=== PATIENT | female | born 1990 | race Two or more races ===

== ENCOUNTER 2018-03-22 19:58 | Observation (INO) | payer OTHER ==
--- NOTE | 2018-03-22 21:50 | ED ---
General Adult HPI - General Source: patient, RN notes reviewed Mode of arrival: ambulatory Limitations: no limitations <Latricia Costello - Last Filed: 03/23/18 00:03> <Enoch Astorga - Last Filed: 03/23/18 00:25> - General Chief complaint: Recheck/Abnormal Lab/Rx Stated complaint: general Time Seen by Provider: 03/22/18 20:46 - History of Present Illness Initial comments: This is a 27-year-old female who presents to the emergency department with altered mental status. Patient is a resident at [facility] where she is undergoing rehab for addictions to heroin and crack cocaine. Patient was sent to the emergency department for evaluation as she has been confused. It is reported that patient is having memory issues was a note times one today. at [facility] that patient come to the emergency department for further evaluation. They are concerned for head trauma. While speaking with patient, she does not recall how long she has been at [facility]. She knows the month and year but is unsure of the day of the week and who the president is. She does not recall any head trauma. She denies any past medical history and states that she takes no medications. She denies fevers, chest pain or shortness of breath, abdominal pain, nausea or vomiting, dizziness or headache. Denies vision changes. She states that she does know that she is having memory issues but denies ever experiencing this before in the past. (Latricia Costello) - Related Data Home Medications Medication Instructions Recorded Confirmed No Known Home Medications 03/22/18 03/22/18 Allergies Allergy/AdvReac Type Severity Reaction Status Date / Time No Known Allergies Allergy Verified 03/22/18 21:16 Review of Systems ROS Other: All systems not noted in ROS Statement are negative. <Latricia Costello - Last Filed: 03/23/18 00:03> ROS Other: All systems not noted in ROS Statement are negative. <Enoch Astorga - Last Filed: 03/23/18 00:25> ROS Statement: Those systems with pertinent positive or pertinent negative responses have been documented in the HPI. Past Medical History Additional Past Medical History / Comment(s): heroin abuse History of Any Multi-Drug Resistant Organisms: None Reported Past Surgical History: Orthopedic Surgery Past Psychological History: No Psychological Hx Reported Smoking Status: Current some day smoker Past Alcohol Use History: None Reported Past Drug Use History: None Reported <Latricia Costello - Last Filed: 03/23/18 00:03> General Exam Limitations: no limitations <Latricia Costello - Last Filed: 03/23/18 00:03> <Enoch Astorga - Last Filed: 03/23/18 00:25> - General Exam Comments Initial Comments: General: Awake and alert, well-developed; in no apparent distress. Patient appears confused, she has difficulty answering questions and stares off into space at times. HEENT: Head atraumatic, normocephalic. Pupils are equal, round and reactive to light. Extraocular movements intact. Oropharynx moist without erythema or exudate. Neck: Supple. Normal ROM. Cardiovascular: Regular rate and rhythm. No murmurs, rubs or gallops. Chest symmetrical. Respiratory: Lungs clear to auscultation bilaterally. No wheezes, rales or rhonchi. Normal respiratory effort with no use of accessory muscles. Abdomen: Soft, non-tender, non-distended. No rigidity, rebound or guarding. Normal bowel sounds in all 4 quadrants. Musculoskeletal: Normal ROM, no tenderness bilateral upper and lower extremities. Ambulating normally. Skin: [place], warm and dry without rashes or lesions. Neurological: Alert and oriented x3. Unsure of the day of the week and who president is. CN II-XII grossly intact. Speech is fluent and answers are appropriate. No focal neuro deficits. (TrangDuong bushLatricia Jignesh) Vital Signs 03/22/18 03/22/18 20:16 23:01 Temperature 98.5 F 98.8 F Pulse Rate 67 57 L Respiratory 20 15 Rate Blood Pressure 117/83 93/53 O2 Sat by Pulse 100 100 Oximetry EKG Findings - EKG Comments: EKG Findings:: 21:20:17. Sinus bradycardia with premature atrial complexes. Prolonged QT. Ventricular rate 57 bpm, VA interval 120, QRS duration 70, QT/ QTc 494/480 <Latricia Costello - Last Filed: 03/23/18 00:03> Medical Decision Making - Lab Data Result diagrams: 03/22/18 21:45 03/22/18 21:45 - Radiology Data Radiology results: report reviewed <Latricia Costello - Last Filed: 03/23/18 00:03> - Lab Data Result diagrams: 03/22/18 21:45 03/22/18 21:45 <Enoch Astorga - Last Filed: 03/23/18 00:25> - Medical Decision Making This is a 27-year-old female who presents to the emergency department with altered mental status. Patient is a resident at [facility]. She has been a resident since 03/17/2018 for heroin and crack cocaine rehab. Today patient was noted to have been confused and having memory issues. On examination, patient states she is unsure why she was here. She states she has noticed she has been having memory issues. She cannot recall how long she has been at [facility]. She does not know the day of the week for who the president is. She is alert and oriented to self and place. No focal neuro deficits on physical examination. A full workup for altered mental status was obtained. Computed tomography scan of the brain revealed no acute abnormalities. Chest x- ray was normal. CBC revealed a high white count at 18.2. Urine drug screen is positive for methamphetamines and benzos. Patient will not admit to using methamphetamine. She states that she has never used methamphetamine ever in her life. CMP and UA demonstrate no significant abnormalities. Case was discussed in detail with attending physician, Dr. Astorga who also evaluated the patient. Patient will be admitted to [facility] with neurology and psych consults. (Latricia Costello) I saw this patient in conjunction with the physician assistant producer. I performed independent history and physical exam. Agree with case management. (Enoch Astorga) - Lab Data Lab Results 03/22/18 03/22/18 03/22/18 Range/Units 21:45 21:45 21:45 WBC 18.2 H (3.8-10.6) k/uL RBC 5.71 H (3.80-5.40) m/uL Hgb 14.6 (11.4-16.0) gm/dL Hct 46.6 H (34.0-46.0) % MCV 81.6 (80.0-100.0) fL MCH 25.5 (25.0-35.0) pg MCHC 31.2 (31.0-37.0) g/dL RDW 14.7 (11.5-15.5) % Plt Count 504 H (150-450) k/uL Neutrophils % 70 % Lymphocytes % 24 % Monocytes % 3 % Eosinophils % 2 % Basophils % 0 % Neutrophils # 12.7 H (1.3-7.7) k/uL Lymphocytes # 4.3 (1.0-4.8) k/uL Monocytes # 0.6 (0-1.0) k/uL Eosinophils # 0.3 (0-0.7) k/uL Basophils # 0.1 (0-0.2) k/uL Hypochromasia Slight PT (9.0-12.0) sec INR (<1.2) APTT (22.0-30.0) sec Sodium 142 (137-145) mmol/L Potassium 4.3 (3.5-5.1) mmol/L Chloride 108 H (98-107) mmol/L Carbon Dioxide 24 (22-30) mmol/L Anion Gap 10 mmol/L BUN 18 H (7-17) mg/dL Creatinine 0.67 (0.52-1.04) mg/dL Est GFR (CKD-EPI)AfAm >90 (>60 ml/min/1.73 sqM) Est GFR (CKD-EPI)NonAf >90 (>60 ml/min/1.73 sqM) Glucose 90 (74-99) mg/dL Calcium 9.6 (8.4-10.2) mg/dL Total Bilirubin 0.6 (0.2-1.3) mg/dL AST 22 (14-36) U/L ALT 30 (9-52) U/L Alkaline Phosphatase 63 (38-126) U/L Troponin I (0.000-0.034) ng/mL Total Protein 9.0 H (6.3-8.2) g/dL Albumin 4.2 (3.5-5.0) g/dL Urine Color Yellow Urine Appearance Cloudy H (Clear) Urine pH 6.0 (5.0-8.0) Ur Specific [place] 1.027 (1.001-1.035) Urine Protein Trace H (Negative) Urine Glucose (UA) Negative (Negative) Urine Ketones Negative (Negative) Urine Blood Negative (Negative) Urine Nitrite Negative (Negative) Urine Bilirubin Negative (Negative) Urine Urobilinogen 2.0 (<2.0) mg/dL Ur Leukocyte Esterase Trace H (Negative) Urine RBC 4 (0-5) /hpf Urine WBC 7 H (0-5) /hpf Ur Squamous Epith Cells 31 H (0-4) /hpf Hyaline Casts 7 H (0-2) /lpf Urine Mucus Many H (None) /hpf Urine HCG, Qual (Not Detectd) Urine Opiates Screen Not Detected (NotDetected) Ur Oxycodone Screen Not Detected (NotDetected) Urine Methadone Screen Not Detected (NotDetected) Ur Propoxyphene Screen Not Detected (NotDetected) Ur Barbiturates Screen Not Detected (NotDetected) U Tricyclic Antidepress Not Detected (NotDetected) Ur Phencyclidine Scrn Not Detected (NotDetected) Ur Amphetamines Screen Not Detected (NotDetected) U Methamphetamines Scrn Detected H (NotDetected) U Benzodiazepines Scrn Detected H (NotDetected) Urine Cocaine Screen Not Detected (NotDetected) U Marijuana (THC) Screen Not Detected (NotDetected) 03/22/18 03/22/18 03/22/18 Range/Units 21:45 21:45 22:20 WBC (3.8-10.6) k/uL RBC (3.80-5.40) m/uL Hgb (11.4-16.0) gm/dL Hct (34.0-46.0) % MCV (80.0-100.0) fL MCH (25.0-35.0) pg MCHC (31.0-37.0) g/dL RDW (11.5-15.5) % Plt Count (150-450) k/uL Neutrophils % % Lymphocytes % % Monocytes % % Eosinophils % % Basophils % % Neutrophils # (1.3-7.7) k/uL Lymphocytes # (1.0-4.8) k/uL Monocytes # (0-1.0) k/uL Eosinophils # (0-0.7) k/uL Basophils # (0-0.2) k/uL Hypochromasia PT 11.3 (9.0-12.0) sec INR 1.2 H (<1.2) APTT 23.0 (22.0-30.0) sec Sodium (137-145) mmol/L Potassium (3.5-5.1) mmol/L Chloride (98-107) mmol/L Carbon Dioxide (22-30) mmol/L Anion Gap mmol/L BUN (7-17) mg/dL Creatinine (0.52-1.04) mg/dL Est GFR (CKD-EPI)AfAm (>60 ml/min/1.73 sqM) Est GFR (CKD-EPI)NonAf (>60 ml/min/1.73 sqM) Glucose (74-99) mg/dL Calcium (8.4-10.2) mg/dL Total Bilirubin (0.2-1.3) mg/dL AST (14-36) U/L ALT (9-52) U/L Alkaline Phosphatase (38-126) U/L Troponin I <0.012 (0.000-0.034) ng/mL Total Protein (6.3-8.2) g/dL Albumin (3.5-5.0) g/dL Urine Color Urine Appearance (Clear) Urine pH (5.0-8.0) Ur Specific [place] (1.001-1.035) Urine Protein (Negative) Urine Glucose (UA) (Negative) Urine Ketones (Negative) Urine Blood (Negative) Urine Nitrite (Negative) Urine Bilirubin (Negative) Urine Urobilinogen (<2.0) mg/dL Ur Leukocyte Esterase (Negative) Urine RBC (0-5) /hpf Urine WBC (0-5) /hpf Ur Squamous Epith Cells (0-4) /hpf Hyaline Casts (0-2) /lpf Urine Mucus (None) /hpf Urine HCG, Qual Not Detected (Not Detectd) Urine Opiates Screen (NotDetected) Ur Oxycodone Screen (NotDetected) Urine Methadone Screen (NotDetected) Ur Propoxyphene Screen (NotDetected) Ur Barbiturates Screen (NotDetected) U Tricyclic Antidepress (NotDetected) Ur Phencyclidine Scrn (NotDetected) Ur Amphetamines Screen (NotDetected) U Methamphetamines Scrn (NotDetected) U Benzodiazepines Scrn (NotDetected) Urine Cocaine Screen (NotDetected) U Marijuana (THC) Screen (NotDetected) - Radiology Data CT brain without contrast impression: Negative head computed tomography scan. Chest x-ray impression: Normal chest. (Latricia Costello) Disposition Is patient prescribed a controlled substance at d/c from ED?: No Time of Disposition: 23:01 <Latricia Costello - Last Filed: 03/23/18 00:03> <Enoch Astorga - Last Filed: 03/23/18 00:25> Clinical Impression: Acute delirium, Leukocytosis Disposition: ADMITTED IP TO THIS HOSP Condition: Fair Referrals: None,Stated [Primary Care Provider] - 1-2 days
[2018-03-22 21:55] LABS: Basophils # (A) 0.1 k/uL (0-0.2); Basophils % (A) 0 %; Eosinophils # (A) 0.3 k/uL (0-0.7); Eosinophils % (A) 2 %; HCT 46.6 % (34.0-46.0); HGB 14.6 gm/dL (11.4-16.0); Hypochromasia Slight; Lymphocytes # (A) 4.3 k/uL (1.0-4.8); Lymphocytes % (A) 24 %; MCH 25.5 pg (25.0-35.0); MCHC 31.2 g/dL (31.0-37.0); MCV 81.6 fL (80.0-100.0); Mean Platelet Volume 6.7; Monocytes # (A) 0.6 k/uL (0-1.0); Monocytes % (A) 3 %; Neutrophils # (A) 12.7 k/uL (1.3-7.7); Neutrophils % (A) 70 %; Platelet Count 504 k/uL (150-450); RBC 5.71 m/uL (3.80-5.40); RDW 14.7 % (11.5-15.5); WBC 18.2 k/uL (3.8-10.6)
[2018-03-22 21:58] LABS: Appearance,Urine Cloudy (Clear); Bilirubin,Urine Negative (Negative); Blood,Urine Negative (Negative); Color,Urine Yellow; Glucose,Urine (UA) Negative (Negative); Hyaline Casts,Urine 7 /lpf (0-2); Ketones,Urine Negative (Negative); Leukocyte Esterase,Urine Trace (Negative); Mucus,Urine Many /hpf; Nitrite,Urine Negative (Negative); Protein,Urine Trace (Negative); RBC,Urine 4 /hpf (0-5); Specific Gravity,Urine 1.027 (1.001-1.035); Squamous Epithelial Cell,Urine 31 /hpf (0-4); WBC,Urine 7 /hpf (0-5)
[2018-03-22 22:05] LABS: ALT 30 U/L (9-52); AST 22 U/L (14-36); Albumin 4.2 g/dL (3.5-5.0); Alkaline Phosphatase 63 U/L (38-126); Anion Gap 10 mmol/L; Blood Urea Nitrogen 18 mg/dL (7-17); Calcium 9.6 mg/dL (8.4-10.2); Carbon Dioxide 24 mmol/L (22-30); Chloride 108 mmol/L (98-107); Glucose 90 mg/dL (74-99); INR 1.2 (<1.2); Potassium 4.3 mmol/L (3.5-5.1); Prothrombin Time 11.3 sec (9.0-12.0); Sodium 142 mmol/L (137-145); Total Bilirubin 0.6 mg/dL (0.2-1.3)
--- NOTE | 2018-03-22 22:06 | XR ---
EXAMINATION TYPE: XR chest 2V DATE OF EXAM: 03/22/2018 COMPARISON: NONE HISTORY: Altered mental status TECHNIQUE: Frontal and lateral views of the chest are obtained. FINDINGS: 2 views Heart and mediastinum are normal. Lungs are clear. Diaphragm is normal. Bony thorax appears normal. IMPRESSION: Normal chest.
--- NOTE | 2018-03-22 22:09 | CT ---
EXAMINATION TYPE: CT brain wo con DATE OF EXAM: 03/22/2018 COMPARISON: None HISTORY: Altered mental status. CT DLP: 801.5 mGycm. Automated Exposure Control for Dose Reduction was Utilized. TECHNIQUE: CT scan of the head is performed without contrast. FINDINGS: Ventricles and sulci appear normal. There is no mass effect nor midline shift. There is no sign of intracranial hemorrhage. The calvarium is intact. IMPRESSION: Negative head CT scan.
[2018-03-22 22:12] LABS: Amphetamine Screen,Urine Not Detected (NotDetected); Barbiturate Screen,Urine Not Detected (NotDetected); Benzodiazepines Screen,Urine Detected (NotDetected); Cocaine Screen,Urine Not Detected (NotDetected); Methadone Screen, Urine Not Detected (NotDetected); Opiate Screen,Urine Not Detected (NotDetected); Oxycodone Screen, Urine Not Detected (NotDetected); Phencyclidine Screen,Urine Not Detected (NotDetected); Tricyclic Antidepressant,Urine Not Detected (NotDetected); Urn Cannabinoid Scrn Not Detected (NotDetected)
[2018-03-22] MEDS ORDERED: NALOXONE 0.4 MG/ML 1 ML VIAL IV PRN (23:50)
[2018-03-22] MEDS ORDERED: ACETAMINOPHEN TAB 325 MG TAB PO PRN (23:57)
[2018-03-22] MEDS ORDERED: KETOROLAC 30 MG/ML 1 ML VIAL IVP PRN (23:57)
[2018-03-22] MEDS ORDERED: ONDANSETRON 4 MG/2 ML VIAL IVP PRN (23:57)
[2018-03-22] MEDS ORDERED: IBUPROFEN 400 MG TAB PO PRN (23:57)
[2018-03-23] MEDS ORDERED: NICOTINE POLACRILEX 2 MG GUM BUCCAL PRN
[2018-03-23] MEDS ORDERED: NICOTINE 14MG/24HR PATCH TRANSDERM STA (00:01)
[2018-03-23] MEDS: SODIUM CHLORIDE 0.9% 1,000 ML IV SCH ×6 (01:19→21:59)
--- NOTE | 2018-03-23 01:21 | P.HPIM ---
History of Present Illness H&P Date: 03/23/18 Chief Complaint: Referred from [facility] The patient is a 27-year-old female who was referred to the ER from [facility] with concerns for altered mental status. Patient is a resident at [facility] where she is undergoing rehab for addictions to heroin and crack cocaine, benzodiazepines Xanax and Klonopin. Patient was sent to the emergency department for evaluation as she has been confused. It is reported that patient is having memory issues was a note times one today. Physician at [facility] that patient come to the emergency department for further evaluation. They are concerned for head trauma. She knows the month and year but is unsure of the day of the week and who the president is. She does not recall any head trauma. She denies any past medical history and states that she takes no medications. She denies fevers, chest pain or shortness of breath , abdominal pain, nausea or vomiting, dizziness or headache. Denies vision changes. She states that she does know that she is having memory issues but denies ever experiencing this before in the past. The patient reports that she checked herself into [facility] from [place] a few days ago. Review of records at [facility] indicates the patient was undergoing rehab and detox with buprenorphine. Patient denies any recent illicit drug use UDS on admission positive for methamphetamines and benzodiazepine, urinalysis appears contaminated, leukocytosis of 18.2. CT of the head was negative for any acute intracranial pathology, chest x-ray is normal. Patient is recommended for admission for neurology and psych consult as [facility] is refusing to take her back before she seen by these consultants Review of Systems Pertinent positives per HPI, all other review of systems otherwise negative Past Medical History Additional Past Medical History / Comment(s): heroin abuse History of Any Multi-Drug Resistant Organisms: None Reported Past Surgical History: Orthopedic Surgery Past Psychological History: No Psychological Hx Reported Smoking Status: Current some day smoker Past Alcohol Use History: None Reported Past Drug Use History: None Reported Medications and Allergies Home Medications Medication Instructions Recorded Confirmed Type No Known Home Medications 03/22/18 03/22/18 History Allergies Allergy/AdvReac Type Severity Reaction Status Date / Time No Known Allergies Allergy Verified 03/22/18 21:16 Physical Exam Vitals: Vital Signs Temp Pulse Resp BP Pulse Ox 03/22/18 23:01 98.8 F 57 L 15 93/53 100 03/22/18 20:16 98.5 F 67 20 117/83 100 Intake and Output 03/22/18 03/22/18 03/23/18 14:59 22:59 06:59 Other: Weight 60.691 kg Constitutional: No acute distress, conversant, pleasant Eyes: Anicteric sclerae, moist conjunctiva, no lid-lag, PERRLA ENMT: NC/AT,Oropharynx clear, no erythema, exudates Neck:Supple, FROM, no masses, or JVD, No carotid bruits; No thyromegaly Lungs: Clear to auscultation, Clear to percussion, Normal respiratory effort, no accessory muscle use Cardiovascular: Heart regular in rate and rhythm, No murmurs, gallops, or rubs no peripheral edema Abdominal: Soft Nontender, nom distended, no guarding, no rebound or rigidity, Normoactive bowel sounds No hepatomegaly, No splenomegaly, No palpable mass No abdominal wall hernia noted Skin: Normal temperature, tone, texture, turgor, No induration No subcutaneous nodules, No rash, lesions, No ulcers Extremities:No digital cyanosis No clubbing, Pedal pulses intact and symmetrical Radial pulses intact and symmetrical Normal gait and station, No calf tenderness Psychiatric: Alert and oriented to person, place and time, flat affect Intact judgement Neuro: Muscles Strength 5/5 in all 4 extremities, Sensation to light touch grossly present throughout, Cranial nerves II-XII grossly intact. No focal sensory deficits Results CBC & Chem 7: 03/22/18 21:45 03/22/18 21:45 Labs: Abnormal Lab Results - Last 24 Hours (Table) 03/22/18 03/22/18 03/22/18 Range/Units 21:45 21:45 21:45 WBC 18.2 H (3.8-10.6) k/uL RBC 5.71 H (3.80-5.40) m/uL Hct 46.6 H (34.0-46.0) % Plt Count 504 H (150-450) k/uL Neutrophils # 12.7 H (1.3-7.7) k/uL INR (<1.2) Chloride 108 H (98-107) mmol/L BUN 18 H (7-17) mg/dL Total Protein 9.0 H (6.3-8.2) g/dL Urine Appearance Cloudy H (Clear) Urine Protein Trace H (Negative) Ur Leukocyte Esterase Trace H (Negative) Urine WBC 7 H (0-5) /hpf Ur Squamous Epith Cells 31 H (0-4) /hpf Hyaline Casts 7 H (0-2) /lpf Urine Mucus Many H (None) /hpf U Methamphetamines Scrn Detected H (NotDetected) U Benzodiazepines Scrn Detected H (NotDetected) 03/22/18 Range/Units 21:45 WBC (3.8-10.6) k/uL RBC (3.80-5.40) m/uL Hct (34.0-46.0) % Plt Count (150-450) k/uL Neutrophils # (1.3-7.7) k/uL INR 1.2 H (<1.2) Chloride (98-107) mmol/L BUN (7-17) mg/dL Total Protein (6.3-8.2) g/dL Urine Appearance (Clear) Urine Protein (Negative) Ur Leukocyte Esterase (Negative) Urine WBC (0-5) /hpf Ur Squamous Epith Cells (0-4) /hpf Hyaline Casts (0-2) /lpf Urine Mucus (None) /hpf U Methamphetamines Scrn (NotDetected) U Benzodiazepines Scrn (NotDetected) Assessment and Plan (1) Encephalopathy acute Current Visit: Yes Status: Acute Code(s): G93.40 - ENCEPHALOPATHY, UNSPECIFIED SNOMED Code(s): 57688732 (2) Leukocytosis Current Visit: Yes Status: Acute Code(s): D72.829 - ELEVATED WHITE BLOOD CELL COUNT, UNSPECIFIED SNOMED Code(s): 109553639 (3) History of heroin abuse Current Visit: Yes Status: Acute Code(s): Z87.898 - PERSONAL HISTORY OF OTHER SPECIFIED CONDITIONS SNOMED Code(s): 550648611 (4) History of crack cocaine use Current Visit: Yes Status: Acute Code(s): XKY3559 - SNOMED Code(s): 769868732 (5) Methamphetamine abuse Current Visit: Yes Status: Acute Code(s): F15.10 - OTHER STIMULANT ABUSE, UNCOMPLICATED SNOMED Code(s): 531033129 (6) Benzodiazepine abuse Current Visit: Yes Status: Acute Code(s): F13.10 - SEDATIVE, HYPNOTIC OR ANXIOLYTIC ABUSE, UNCOMPLICATED SNOMED Code(s): 856230423 Plan: The patient is placed in observation anticipate a less than 2 midnight stay due to concerns for ongoing mental status likely acute encephalopathy possibly precipitated by withdrawals from either benzodiazepines, cocaine, or methamphetamine. CT of the head negative for any acute intracranial pathology, will consult neurology and psychiatry per the request of physician [place]. Patient is otherwise hemodynamically stable, initiate IV fluids, and continue with supportive therapy. Follow-up recommendations by consultants and continue to follow her clinical course.
[2018-03-23 01:56] VITALS: BMI 20.3
[2018-03-23] MEDS ORDERED: SODIUM CHLORIDE 0.9% 500 ML 500 ML IV ONE (08:11)
[2018-03-23 10:15] LABS: Basophils # (A) 0.1 k/uL (0-0.2); Basophils % (A) 0 %; Eosinophils # (A) 0.3 k/uL (0-0.7); Eosinophils % (A) 2 %; HCT 45.9 % (34.0-46.0); HGB 14.4 gm/dL (11.4-16.0); Hypochromasia Slight; Lymphocytes # (A) 4.4 k/uL (1.0-4.8); Lymphocytes % (A) 22 %; MCH 25.6 pg (25.0-35.0); MCHC 31.4 g/dL (31.0-37.0); MCV 81.4 fL (80.0-100.0); Mean Platelet Volume 7.8; Monocytes # (A) 0.8 k/uL (0-1.0); Monocytes % (A) 4 %; Neutrophils # (A) 13.7 k/uL (1.3-7.7); Neutrophils % (A) 70 %; Platelet Count 570 k/uL (150-450); RBC 5.64 m/uL (3.80-5.40); RDW 14.6 % (11.5-15.5); WBC 19.6 k/uL (3.8-10.6)
--- NOTE | 2018-03-23 12:07 | P.PN ---
Progress Note - Text Progress Note Date: 03/23/18 The patient was seen and examined at the bedside. She denied any active complaints and notes that she is feeling okay. She denied fever, chills, cough, chest pain, SOB, dysuria, abominal pain, nausea, vomiting, or diarrhea. General: Non-toxic, in no acute distress HEENT: NC/AT, anicteric sclerae, moist conjunctiva, no lid-lag, PERRLA, oropharynx clear, no erythema, exudates Cardiovascular: S1/S2 wnl, no murmurs, rubs, or gallops Lungs: Clear to auscultation, normal respiratory effort, no accessory muscle use Abdominal: Soft, nontender, non-distended, no guarding, rebound, or rigidity, normoactive bowel sounds Skin: Multiple areas of hyperpigmentation and bruising predominently of the UEs noted Extremities: No edema or contractures Psychiatric: Alert and oriented to person, place and time, flat affect Neuro: CN II-XII grossly intact, no focal motor deficits Assessment/Plan Acute encephalopathy (possibly secondary to withdrawal from multiple substances) - Improving, will monitor for now - Neuro and Psych consults pending Leukocytosis - No signs of infection at this time - BP stable (single reading of 85/54 in am which improved to 119/78 without intervention) - Will obtain Pro-calcitonin levels
[2018-03-23 12:29] LABS: ALT 21 U/L (9-52); AST 31 U/L (14-36); Albumin 4.2 g/dL (3.5-5.0); Alkaline Phosphatase 63 U/L (38-126); Anion Gap 12 mmol/L; Blood Urea Nitrogen 17 mg/dL (7-17); Calcium 9.6 mg/dL (8.4-10.2); Carbon Dioxide 20 mmol/L (22-30); Chloride 111 mmol/L (98-107); Glucose 83 mg/dL (74-99); Sodium 143 mmol/L (137-145); Total Protein 8.9 g/dL (6.3-8.2)
[2018-03-23 12:33] LABS: Potassium 5.1 mmol/L (3.5-5.1)
--- NOTE | 2018-03-23 19:39 | P.CNNES ---
History of Present Illness Consult date: 03/23/18 History of Present Illness: The patient is a 27-year-old handed white female who was sent to the emergency department with altered mental status from [facility] where she was staying since March 17. Apparently the patient has been having some memory issues and was referred to the hospital because of that. The patient is sitting in bed with the television on occasionally turning to the interviewer when spoken to. She is able to answer questions but doesn't voluntarily give any information as to the reason for admission. She had is aware that she is a resident of [facility] however she does not recall how long she's been there. She states she's been there a long time. She denies any neurologic complaints such as headache dizziness weakness numbness loss of balance loss of coordination or hallucinations. The patient does not show much emotion but didn 't have some tearfulness at some point during the interview. In the emergency room she had an elevated white cell count of 18.2 and drug screen showed methamphetamine in the urine and benzodiazepine in the urine. Urine analysis showed 7 wbc's and trace positive leukoesterase. There has been no fever. She was admitted to the hospital with diagnosis of acute encephalopathy, leukocytosis, history of heroin abuse, history of crack cocaine abuse, methamphetamine abuse, and benzodiazepine abuse. She is placed in observation unit. She had a CT of the head which was negative. Neurology was consulted today regarding altered mental status.. She denies any history of head trauma. Review of Systems Constitutional: Denies chills, Denies fever Eyes: denies blurred vision, denies pain Ears, nose, mouth and throat: Denies headache, Denies sore throat Cardiovascular: Denies chest pain, Denies shortness of breath Respiratory: Reports as per HPI Integumentary: Denies pruritus, Denies rash Neurological: Denies numbness, Denies weakness Psychiatric: Denies anxiety, Denies depression Past Medical History Additional Past Medical History / Comment(s): heroin abuse History of Any Multi-Drug Resistant Organisms: None Reported Past Surgical History: Orthopedic Surgery Additional Past Surgical History / Comment(s): Right hip surgery- patient says they repaired tissue because of needle use Past Psychological History: No Psychological Hx Reported Smoking Status: Current some day smoker Past Alcohol Use History: None Reported Past Drug Use History: None Reported Medications and Allergies Home Medications Medication Instructions Recorded Confirmed Type No Known Home Medications 03/22/18 03/22/18 History Allergies Allergy/AdvReac Type Severity Reaction Status Date / Time No Known Allergies Allergy Verified 03/22/18 21:16 Physical Examination - Vital Signs Vital Signs: Vital Signs Temp Pulse Pulse Resp BP BP BP 03/23/18 16:35 98.6 F 76 18 107/69 03/23/18 09:04 60 119/78 03/23/18 07:30 97.8 F 54 L 16 85/54 03/23/18 04:00 98.2 F 62 16 112/72 03/23/18 01:35 16 03/23/18 00:37 98.1 F 52 L 16 103/62 03/22/18 23:01 98.8 F 57 L 15 93/53 03/22/18 20:16 98.5 F 67 20 117/83 Pulse Ox 03/23/18 16:35 03/23/18 09:04 03/23/18 07:30 99 03/23/18 04:00 100 03/23/18 01:35 03/23/18 00:37 100 03/22/18 23:01 100 03/22/18 20:16 100 Intake and Output 03/23/18 03/23/18 03/23/18 06:59 14:59 22:59 Intake Total 342 Balance 342 Intake: Oral 342 Other: Voiding Method Toilet # Voids 1 Weight 60.69 kg - Constitutional General appearance: average body habitus, cooperative - EENT EENT: PERRL, hearing intact, vision intact - Respiratory Respiratory: lungs clear - Cardiovascular Cardiovascular: regular rate, normal S1, normal S2 - Neurologic Neurologic examination: Mental status: She was awake she was alert she was oriented to person place and year. She did was unaware of the date. When asked what drugs she has abused in the past she said heroin and crack cocaine. She denies any symptoms at present. She denied any headache back pain and neck pain or focal weakness numbness visual changes or dizziness. She denies having had any hallucinations. When asked about confusion she states she has not had any confusion. She was able to recall 3 out of 3 objects in 1 minute 2 minutes and 3 minutes. She was able to do simple addition but had difficulty with subtraction. There was no a aphasia or dysarthria. Cranial nerve examination: PERRL, EOMI, VFF, V1/V2/V3 grossly intact, face symmetric Speech examination: intact Detailed motor examination: grossly full strength in all extremities Results - Laboratory Findings CBC and BMP: 03/23/18 09:18 03/23/18 11:40 Abnormal Lab Findings: Abnormal Labs 03/22/18 03/22/18 03/22/18 21:45 21:45 21:45 WBC 18.2 H RBC 5.71 H Hct 46.6 H Plt Count 504 H Neutrophils # 12.7 H INR Chloride 108 H Carbon Dioxide BUN 18 H Total Protein 9.0 H Urine Appearance Cloudy H Urine Protein Trace H Ur Leukocyte Esterase Trace H Urine WBC 7 H Ur Squamous Epith Cells 31 H Hyaline Casts 7 H Urine Mucus Many H U Methamphetamines Scrn Detected H U Benzodiazepines Scrn Detected H 03/22/18 03/23/18 03/23/18 21:45 09:18 11:40 WBC 19.6 H RBC 5.64 H Hct Plt Count 570 H Neutrophils # 13.7 H INR 1.2 H Chloride 111 H Carbon Dioxide 20 L BUN Total Protein 8.9 H Urine Appearance Urine Protein Ur Leukocyte Esterase Urine WBC Ur Squamous Epith Cells Hyaline Casts Urine Mucus U Methamphetamines Scrn U Benzodiazepines Scrn Assessment and Plan (1) Acute psychosis Current Visit: Yes Status: Acute SNOMED Code(s): 93109482 (2) Leukocytosis Current Visit: Yes Status: Acute SNOMED Code(s): 523179556 (3) Methamphetamine abuse Current Visit: Yes Status: Acute SNOMED Code(s): 612597638 (4) Benzodiazepine abuse Current Visit: Yes Status: Acute SNOMED Code(s): 226293363 (5) History of crack cocaine use Current Visit: Yes Status: Acute SNOMED Code(s): 023039637 Plan: The patient is a 27-year-old woman who has history of drug abuse was admitted to the hospital with altered mental status. Her neurologic examination is nonfocal. She does have cognitive disturbance which may be secondary to methamphetamine withdrawal. She does exhibit signs of depression. Psychiatry has been consulted. She has some leukocytosis of unclear etiology. Recommend infectious disease consultation regarding unspecified leukocytosis. She has had a CT of the brain which was negative. Recommend EEG. She has an abnormal EKG with prolonged QT interval and bradycardia. Recommend echocardiogram. Also check TSH T4
[2018-03-24] MEDS: SODIUM CHLORIDE 0.9% 1,000 ML IV SCH ×4 (03:23→17:51)
[2018-03-24 08:05] LABS: HCT 47.8 % (34.0-46.0); HGB 14.7 gm/dL (11.4-16.0); Hypochromasia Moderate; MCH 25.7 pg (25.0-35.0); MCHC 30.7 g/dL (31.0-37.0); MCV 83.9 fL (80.0-100.0); Platelet Count 531 k/uL (150-450); RBC 5.69 m/uL (3.80-5.40); RDW 14.6 % (11.5-15.5); WBC 17.8 k/uL (3.8-10.6)
[2018-03-24 08:25] LABS: ALT 20 U/L (9-52); AST 23 U/L (14-36); Albumin 4.2 g/dL (3.5-5.0); Alkaline Phosphatase 60 U/L (38-126); Anion Gap 11 mmol/L; Blood Urea Nitrogen 15 mg/dL (7-17); Calcium 9.6 mg/dL (8.4-10.2); Carbon Dioxide 21 mmol/L (22-30); Chloride 111 mmol/L (98-107); Glucose 98 mg/dL (74-99); Potassium 4.7 mmol/L (3.5-5.1); Sodium 143 mmol/L (137-145); Total Bilirubin 0.7 mg/dL (0.2-1.3); Total Protein 8.9 g/dL (6.3-8.2)
--- NOTE | 2018-03-24 12:02 | MR ---
EXAMINATION TYPE: MR brain wo con DATE OF EXAM: 03/24/2018 COMPARISON: CT brain dated 03/22/2018 HISTORY: altered mental status with IV drug abuse TECHNIQUE: Multiplanar, multisequence images of the brain and brainstem is performed without intravenous contras t. Patient motion artifact limits the examination and the examination is incomplete as the patient te rminated the examination before completion. FINDINGS: Diffusion weighted images demonstrate no evidence of a recent infarct or other diffusion ab normality. There is no extra-axial fluid collection or significant white matter signal abnormality. The ventricular system and cisternal spaces are normal in size and appearance. The brain volume is age appropriate. Midline structures demonstrate normal morphology. The craniocervical junction appears within normal limits. Post contrast images demonstrate no abnormal enhancement. The dural venous sinuses appear pa tent. The visualized sinuses are clear and the globes are intact. IMPRESSION: No evidence of acute infarct, midline shift or mass effect. Exam is suboptimal given casandra ent motion artifact and limited sequences as the patient voluntarily terminated the examination befor e completion.
--- NOTE | 2018-03-24 12:23 | P.PN ---
Subjective Progress Note Date: 03/24/18 Patient was seen and examined at the bedside. The patient was seated upright in the bed w/ flat affect. She denied any active complaints including headache, dizziness, confusion, fever, chills, nausea, vomiting, diarrhea, or abdominal pain. Objective - Vital Signs Vital signs: Vital Signs Temp 97.8 F 03/24/18 10:20 Pulse 70 03/24/18 10:20 Resp 20 03/24/18 10:20 BP 103/71 03/24/18 10:20 Pulse Ox 99 03/24/18 10:20 Intake & Output 03/23/18 03/24/18 03/24/18 18:59 06:59 18:59 Intake Total 342 Balance 342 Weight 60.69 kg Intake: Oral 342 Other: Voiding Method Toilet Toilet # Voids 1 - Exam General: Non-toxic, in no acute distress HEENT: NC/AT, anicteric sclerae, moist conjunctiva, no lid-lag, PERRLA, oropharynx clear, no erythema, exudates Cardiovascular: S1/S2 wnl, no murmurs, rubs, or gallops Lungs: Clear to auscultation, normal respiratory effort, no accessory muscle use Abdominal: Soft, nontender, non-distended, no guarding, rebound, or rigidity, normoactive bowel sounds Skin: Warm, dry Extremities: Areas of hyperpigmentation and healed ulcers diffusely, predominantly in the UEs Psychiatric: Alert and oriented to person, and place. Could recall the year though not the month, flat affect, Intact judgment Neuro: CN II-XII grossly intact, no focal motor deficits - Labs CBC & Chem 7: 03/24/18 07:48 03/24/18 07:48 Labs: Abnormal Lab Results - Last 24 Hours (Table) 03/23/18 03/24/18 03/24/18 Range/Units 11:40 07:48 07:48 WBC 17.8 H (3.8-10.6) k/uL RBC 5.69 H (3.80-5.40) m/uL Hct 47.8 H (34.0-46.0) % MCHC 30.7 L (31.0-37.0) g/dL Plt Count 531 H (150-450) k/uL Chloride 111 H 111 H (98-107) mmol/L Carbon Dioxide 20 L 21 L (22-30) mmol/L Total Protein 8.9 H 8.9 H (6.3-8.2) g/dL Assessment and Plan Plan: Acute encephalopathy, improving, possibly secondary to substance withdrawal (ie Methamphetamine) - Neurology recs appreciated - Psychiatry recs pending - MRI brain unremarkable - TSH and Free T4 unremarkable - EEG pending. Prolonged QT and sinus bradycardia - Will f/u Echocardiogram Leukocytosis - Improved, no other signs of infection - Infectious disease consulted - Procalcitonin levels negative DVT//GI prophy. - IPCDs - No indication for GI prophy.
--- NOTE | 2018-03-24 16:30 | ECHOF ---
Referral Reason:IV drug abuse rule out endocarditis MEASUREMENTS -------- HEIGHT: 172.7 cm WEIGHT: 62.6 kg BP: 100/63 RVIDd: 2.5 cm (< 3.3) IVSd: 1.0 cm (0.6 - 1.1) LVIDd: 4.1 cm (3.9 - 5.3) LVPWd: 1.0 cm (0.6 - 1.1) IVSs: 1.3 cm LVIDs: 2.4 cm LVPWs: 1.5 cm LA Diam: 2.4 cm (2.7 - 3.8) Ao Diam: 2.7 cm (2.0 - 3.7) AV Cusp: 2.1 cm (1.5 - 2.6) MV EXCURSION: 17.440 mm (> 18.000) MV EF SLOPE: 123 mm/s (70 - 150) EPSS: 0.4 cm MV E Antonio: 0.88 m/s MV DecT: 330 ms MV A Antonio: 0.52 m/s MV E/A Ratio: 1.70 RAP: 5.00 mmHg RVSP: 24.33 mmHg FINDINGS -------- Sinus rhythm. This was a technically good study. The left ventricular size is normal. Left ventricular wall thickness is normal. Overall left vent ricular systolic function is normal with, an EF between 55 - 60 %. The right ventricle is normal in size. Normal LA size by volume 22+/-6 ml/m2. The right atrium is normal in size. The aortic valve is trileaflet, and appears structurally normal. No aortic stenosis or regurgitation. The mitral valve is normal. There is trace mitral regurgitation. The tricuspid valve appears structurally normal. Mild tricuspid regurgitation present. Right vent ricular systolic pressure is normal at < 35 mmHg. The pulmonic valve was not well visualized. The aortic root size is normal. Normal inferior vena cava with normal inspiratory collapse consistent with estimated right atrial pre ssure of 5 mmHg. There is no pericardial effusion. CONCLUSIONS -------- 1. Sinus rhythm. 2. This was a technically good study. 3. The left ventricular size is normal. 4. Left ventricular wall thickness is normal. 5. Overall left ventricular systolic function is normal with, an EF between 55 - 60 %. 6. Normal LA size by volume 22+/-6 ml/m2. 7. The aortic valve is trileaflet, and appears structurally normal. No aortic stenosis or regurgitati on. 8. There is trace mitral regurgitation. 9. Mild tricuspid regurgitation present. 10. Right ventricular systolic pressure is normal at < 35 mmHg. 11. The pulmonic valve was not well visualized. 12. The aortic root size is normal. 13. Normal inferior vena cava with normal inspiratory collapse consistent with estimated right atrial pressure of 5 mmHg. 14. There is no pericardial effusion. [employer]AT MECH[employer]IC: Debbie Milligan RDCS
--- NOTE | 2018-03-24 20:25 | P.PN ---
Subjective Progress Note Date: 03/24/18 The patient is a 27-year-old woman admitted to the hospital from [facility] with altered mental status. The patient states she is feeling fine. She has no new complaints. She has no complaints. She denies any headache dizziness weakness or confusion. She had an MRI of the brain which showed no evidence of acute infarct or mass effect. Exam was suboptimal due to motion artifact and the patient voluntarily terminated the exam. She does not show much emotion. Does appear anxious and slightly depressed. He appears reluctant to answer questions. She had an echocardiogram which was unremarkable. When asked about methamphetamine use she states that she last used it about one year ago. She states her current drugs she uses are crack cocaine and heroin. She is still unclear about how long she has been at [facility]. He denies hallucinations and she denies any change in her mental status. Objective - Vital Signs Vital signs: Vital Signs Temp 97.8 F 03/24/18 10:20 Pulse 70 03/24/18 15:44 Resp 20 03/24/18 15:44 BP 103/71 03/24/18 10:20 Pulse Ox 99 03/24/18 10:20 Intake & Output 03/24/18 03/24/18 03/25/18 06:59 18:59 06:59 Weight 60.69 kg Other: Voiding Method Toilet Toilet # Voids 1 - Constitutional General appearance: Present: average body habitus, cooperative - EENT Eyes: Present: EOMI ENT: Present: hearing grossly normal - Neurologic Neurologic Comment(s): Neurologic examination: Mental status: She was awake. She was alert. She appeared anxious and not forthcoming with answers. When asked what city she was in she initially said [place]. When asked a few minutes later she said [place]. The year was 2017 the month was March when asked what facility she was in she said [facility] when asked a few minutes later she said [facility]. She had difficulty with calculations addition and subtraction and she was able to spell world forward but had difficulty spelling it backwards . When asked about her children she states she has a 10-year-old son and another child which she lost in a miscarriage. She is unsure of when the miscarriage occurred. Speech was fluent and she followed commands appropriately. When asked if she recognize the examiner she stated yes and that she had met at the examiner's house and [place]. She did not appear surprised and showed a very flat affect Cranial nerves: There was no facial asymmetry. Extraocular movements are intact. Visual bell were full. Motor examination: 5 out of 5 throughout except Coordination was intact next Deep tendon reflexes were symmetric Gait was intact - Labs CBC & Chem 7: 03/24/18 07:48 03/24/18 07:48 Labs: Abnormal Lab Results - Last 24 Hours (Table) 03/24/18 03/24/18 Range/Units 07:48 07:48 WBC 17.8 H (3.8-10.6) k/uL RBC 5.69 H (3.80-5.40) m/uL Hct 47.8 H (34.0-46.0) % MCHC 30.7 L (31.0-37.0) g/dL Plt Count 531 H (150-450) k/uL Chloride 111 H (98-107) mmol/L Carbon Dioxide 21 L (22-30) mmol/L Total Protein 8.9 H (6.3-8.2) g/dL Assessment and Plan (1) Acute psychosis Current Visit: Yes Status: Acute SNOMED Code(s): 87708508 (2) Leukocytosis Current Visit: Yes Status: Acute SNOMED Code(s): 959612990 (3) Methamphetamine abuse Current Visit: Yes Status: Acute SNOMED Code(s): 709104687 (4) Benzodiazepine abuse Current Visit: Yes Status: Acute SNOMED Code(s): 346377394 (5) History of crack cocaine use Current Visit: Yes Status: Acute SNOMED Code(s): 267077673 Plan: The patient is a 27-year-old woman who has history of heroin and cocaine drug abuse was admitted to the hospital with altered mental status. Her neurologic examination is nonfocal except for cognitive impairment. She also appears depressed and anxious. She had an MRI of the brain today which was unremarkable. This was a suboptimal study since patient terminated the examination. Her white cell count and platelet count have come down slightly. Her EEG was normal. Psychiatry evaluation is pending. The patient's cognitive issues are likely secondary to methamphetamine withdrawal.
--- NOTE | 2018-03-24 20:57 | EEG ---
ELECTROENCEPHALOGRAM REPORT DATE OF EE03/24/2018. REFERRING PHYSICIAN: Dr. Felipe. CONSULTING AND INTERPRETING PHYSICIAN: Dr. Germain FELICIANO ELECTROENCEPHALOGRAPHIC EXAMINATION REPORT: INDICATION FOR EXAMINATION: This patient is a 27-year-old female being evaluated for altered mental status and memory loss. Patient admitted with positive drug screen. AGE: [age]. EEG FINDINGS: A routine 21 channel awake digital EEG recording was accomplished utilizing the 10-20 international system with bipolar and referential montages. The background activity in the most alert resting state consists of a low to medium amplitude, poorly developed and poorly sustained 8 Hz activity over the posterior head regions. This posterior rhythm attenuates to eye opening. There is an excessive amount of low amplitude 18-20 Hz beta activity seen in a generalized fashion throughout the tracing. Muscle and movement artifact was observed on a few occasions during the tracing. Hyperventilation was not performed. Photic stimulation at flash frequencies of 2-30 Hz produced a minimal occipital driving response. No epileptiform discharges were seen. IMPRESSION: This EEG is within normal limits for the patient's age. The EEG failed to reveal any focal, lateralized, or epileptiform abnormalities. Clinical correlation is recommended. MMODL / IJN: [id number] /
--- NOTE | 2018-03-24 23:10 | P.CONS ---
History of Present Illness - Reason for Consult Consult date: 03/24/18 - Chief Complaint Altered mental status - History of Present Illness 27-year-old female presents to the emergency center from [facility] with altered mental status. The patient apparently has been a resident there for relatively short period of time when she started to have worsening mental status. She counseling was sent to the emergency center with evidence of altered mental status she was admitted to hospital for neurological evaluation. Computed tomography scan was performed without acute abnormalities. She's been seen by neurology with evidence of underlying encephalopathy. Her drug screen admission was positive for methamphetamine as well as benzodiazepines. The patient denies using any drugs at all. She has no idea how she has drugs in her system. She does relate to a known history of injection drug use but it's been many months since she utilized heroin and cocaine. The patient relates that she is a 10-year-old son who is under the care of his father in the [place] area, which is important because of her difficulties with drug use and staying at the [facility]. The patient relates a board and is able to state that she is in [facility] in the [facility]. However 1 first asked where she is at she says [place]. She relates that she saw Dr. Groves and Dr. Pal bañuelos last year. She had difficulty with any mental calculations but denied hallucinations. She distinctly denies any discomforts, she has no headache, no eye pain, no shortness of breath cough or sputum production no abdominal pain no nausea emesis change in bowel habits. She doesn't believe she has dysuria or flank pain. Review of Systems HEENT:Denies headache or acute visual change. Denies sinus or mouth discomforts. Denies neck stiffness or pain. Denies significant oral cavity pain. Denies difficulty on swallowing. Lungs: Denies significant shortness of breath, cough, sputum production, or hemoptysis. Cardiovascular: Denies significant shortness of breath, chest pain, chest wall pain, orthopnea, dyspnea on exertion, syncope Gastrointestinal:Denies nausea, vomiting, diarrhea, constipation, hematemesis, melena, hematochezia. No no significant change of bowel habit noticed. Musculoskeletal: denies significant myalgias or arthralgias. No new joint swelling. Denies new back pain. Skin: Denies new rash or lesions. No new ulcers or wounds are related.. Neuro: Denies headache or visual change. Denies any new onset weakness or difficulty with ambulation. Denies falls or seizures. Psychiatric: Positive for polysubstance abuse, no current hallucinations Endocrine: Denies significant fatigue, denies significant weight loss or weight gain. Past Medical History Additional Past Medical History / Comment(s): heroin abuse History of Any Multi-Drug Resistant Organisms: None Reported Past Surgical History: Orthopedic Surgery Additional Past Surgical History / Comment(s): Right hip surgery- patient says they repaired tissue because of needle use Past Psychological History: No Psychological Hx Reported Additional Psychological History / Comment(s): She is single. The father of her 10-year-old apparently is in custody of the child. Has a history of tobacco use, denies much alcohol use, has a history of polysubstance abuse and has done heroin and cocaine by injection last time apparently a few months ago. It is noted methamphetamine and benzodiazepine in her system at admission. No experience. No international travel. No animal exposures Smoking Status: Current some day smoker Past Alcohol Use History: None Reported Past Drug Use History: None Reported Medications and Allergies Home Medications and Allergies Comment(s): Current Medications Acetaminophen (Tylenol Tab) 650 mg PO Q6HR PRN PRN Reason: Mild Pain or Fever > 100.5 Sodium Chloride (Saline 0.9%) 1,000 mls @ 100 mls/hr IV .Q10H [facility] Last Admin: 03/24/18 17:51 Dose: Not Given Sodium Chloride (Saline 0.9%) 1,000 mls @ 100 mls/hr IV .Q10H [facility] Last Admin: 03/24/18 17:24 Dose: Not Given Ibuprofen (Motrin) 400 mg PO Q6HR PRN PRN Reason: Mild Pain or Fever > 100.5 Ketorolac Tromethamine (Toradol) 30 mg IVP Q6HR PRN PRN Reason: Moderate Pain Stop: 03/27/18 23:58 Naloxone HCl (Narcan) 0.2 mg IV Q2M PRN PRN Reason: Opioid Reversal Nicotine Polacrilex (Nicorette Gum) 2 mg BUCCAL Q6HR PRN PRN Reason: Nicotine Cravings Ondansetron HCl (Zofran) 4 mg IVP Q8HR PRN PRN Reason: Nausea And Vomiting Home Medications Medication Instructions Recorded Confirmed Type No Known Home Medications 03/22/18 03/22/18 History Allergies Allergy/AdvReac Type Severity Reaction Status Date / Time No Known Allergies Allergy Verified 03/22/18 21:16 Physical Exam Vitals: Vital Signs Temp Pulse Resp BP Pulse Ox 03/24/18 20:20 98.4 F 77 16 115/74 99 03/24/18 15:44 70 20 03/24/18 12:00 70 20 03/24/18 10:20 97.8 F 70 20 103/71 99 03/24/18 07:10 63 16 03/24/18 04:00 98.2 F 63 16 100/63 97 03/24/18 01:51 67 16 03/24/18 00:00 67 16 Intake and Output 03/24/18 03/24/18 03/24/18 06:59 14:59 22:59 Intake Total 420 Balance 420 Intake: Oral 420 Other: Voiding Method Toilet Toilet Toilet # Voids 1 Weight 60.69 kg 27-year-old female in no distress HEENT: Anicteric conjunctiva are pink and moist nasal mucosa grossly intact without significant lesions, there is no thrush. Dentition is poor Neck: The neck is supple without significant lymphadenopathy or thyromegaly. Lungs: Good bilateral air entry without significant crackles or wheezing. There is no significant bronchial sounds. There is no egophony or dullness. Heart: Regular rate and rhythm with an audible S1-S2, no S3 no S4. There is no significant murmur click or rub, PMI was nondisplaced. Abdomen: Positive bowel sounds soft and nontender without palpable masses or organomegaly. There was no guarding or rebound. Extremities: The upper extremities have excellent pulses they are symmetric, no significant petechiae or telangiectasia. No splinter hemorrhages were noted. The lower extremities are free from significant edema. The peripheral pulses were 2+ and symmetric. Neuro: Awake alert oriented to person as noted for place she was able to read the board and states that she was at [facility], and then [facility] however first related that she was in [place]. She had difficulty with calculations, could not spelled world backwards, her gait was somewhat unsteady , denied hallucinations but was confabulating some of her answers such as knowing Dr. Groves from her at Dr. Aguillon [place]. No focal deficits noted. Results CBC & Chem 7: 03/24/18 07:48 03/24/18 07:48 Labs: Abnormal Lab Results - Last 24 Hours (Table) 03/24/18 03/24/18 Range/Units 07:48 07:48 WBC 17.8 H (3.8-10.6) k/uL RBC 5.69 H (3.80-5.40) m/uL Hct 47.8 H (34.0-46.0) % MCHC 30.7 L (31.0-37.0) g/dL Plt Count 531 H (150-450) k/uL Chloride 111 H (98-107) mmol/L Carbon Dioxide 21 L (22-30) mmol/L Total Protein 8.9 H (6.3-8.2) g/dL Laboratory Results WBC 17.8 k/uL (3.8-10.6) H 03/24/18 07:48 RBC 5.69 m/uL (3.80-5.40) H 03/24/18 07:48 Hgb 14.7 gm/dL (11.4-16.0) 03/24/18 07:48 Hct 47.8 % (34.0-46.0) H 03/24/18 07:48 MCV 83.9 fL (80.0-100.0) 03/24/18 07:48 MCH 25.7 pg (25.0-35.0) 03/24/18 07:48 MCHC 30.7 g/dL (31.0-37.0) L 03/24/18 07:48 RDW 14.6 % (11.5-15.5) 03/24/18 07:48 Plt Count 531 k/uL (150-450) H 03/24/18 07:48 Neutrophils % 70 % 03/23/18 09:18 Lymphocytes % 22 % 03/23/18 09:18 Monocytes % 4 % 03/23/18 09:18 Eosinophils % 2 % 03/23/18 09:18 Basophils % 0 % 03/23/18 09:18 Neutrophils # 13.7 k/uL (1.3-7.7) H 03/23/18 09:18 Lymphocytes # 4.4 k/uL (1.0-4.8) 03/23/18 09:18 Monocytes # 0.8 k/uL (0-1.0) 03/23/18 09:18 Eosinophils # 0.3 k/uL (0-0.7) 03/23/18 09:18 Basophils # 0.1 k/uL (0-0.2) 03/23/18 09:18 Hypochromasia Moderate 03/24/18 07:48 PT 11.3 sec (9.0-12.0) 03/22/18 21:45 INR 1.2 (<1.2) H 03/22/18 21:45 APTT 23.0 sec (22.0-30.0) 03/22/18 21:45 Sodium 143 mmol/L (137-145) 03/24/18 07:48 Potassium 4.7 mmol/L (3.5-5.1) 03/24/18 07:48 Chloride 111 mmol/L (98-107) H 03/24/18 07:48 Carbon Dioxide 21 mmol/L (22-30) L 03/24/18 07:48 Anion Gap 11 mmol/L 03/24/18 07:48 BUN 15 mg/dL (7-17) 03/24/18 07:48 Creatinine 0.62 mg/dL (0.52-1.04) 03/24/18 07:48 Est GFR (CKD-EPI)AfAm >90 (>60 ml/min/1.73 sqM) 03/24/18 07:48 Est GFR (CKD-EPI)NonAf >90 (>60 ml/min/1.73 sqM) 03/24/18 07:48 Glucose 98 mg/dL (74-99) 03/24/18 07:48 Calcium 9.6 mg/dL (8.4-10.2) 03/24/18 07:48 Total Bilirubin 0.7 mg/dL (0.2-1.3) 03/24/18 07:48 AST 23 U/L (14-36) 03/24/18 07:48 ALT 20 U/L (9-52) 03/24/18 07:48 Alkaline Phosphatase 60 U/L (38-126) 03/24/18 07:48 Troponin I <0.012 ng/mL (0.000-0.034) 03/22/18 21:45 Total Protein 8.9 g/dL (6.3-8.2) H 03/24/18 07:48 Albumin 4.2 g/dL (3.5-5.0) 03/24/18 07:48 Procalcitonin 0.02 ng/mL (0.02-0.09) 03/23/18 18:00 TSH 0.651 mIU/L (0.465-4.680) 03/23/18 18:00 Free T4 1.50 ng/dL (0.78-2.19) 03/24/18 07:48 Urine Color Yellow 03/22/18 21:45 Urine Appearance Cloudy (Clear) H 03/22/18 21:45 Urine pH 6.0 (5.0-8.0) 03/22/18 21:45 Ur Specific Poston 1.027 (1.001-1.035) 03/22/18 21:45 Urine Protein Trace (Negative) H 03/22/18 21:45 Urine Glucose (UA) Negative (Negative) 03/22/18 21:45 Urine Ketones Negative (Negative) 03/22/18 21:45 Urine Blood Negative (Negative) 03/22/18 21:45 Urine Nitrite Negative (Negative) 03/22/18 21:45 Urine Bilirubin Negative (Negative) 03/22/18 21:45 Urine Urobilinogen 2.0 mg/dL (<2.0) 03/22/18 21:45 Ur Leukocyte Esterase Trace (Negative) H 03/22/18 21:45 Urine RBC 4 /hpf (0-5) 03/22/18 21:45 Urine WBC 7 /hpf (0-5) H 03/22/18 21:45 Ur Squamous Epith Cells 31 /hpf (0-4) H 03/22/18 21:45 Hyaline Casts 7 /lpf (0-2) H 03/22/18 21:45 Urine Mucus Many /hpf (None) H 03/22/18 21:45 Urine HCG, Qual Not Detected (Not Detectd) 03/22/18 22:20 Urine Opiates Screen Not Detected (NotDetected) 03/22/18 21:45 Ur Oxycodone Screen Not Detected (NotDetected) 03/22/18 21:45 Urine Methadone Screen Not Detected (NotDetected) 03/22/18 21:45 Ur Propoxyphene Screen Not Detected (NotDetected) 03/22/18 21:45 Ur Barbiturates Screen Not Detected (NotDetected) 03/22/18 21:45 U Tricyclic Antidepress Not Detected (NotDetected) 03/22/18 21:45 Ur Phencyclidine Scrn Not Detected (NotDetected) 03/22/18 21:45 Ur Amphetamines Screen Not Detected (NotDetected) 03/22/18 21:45 U Methamphetamines Scrn Detected (NotDetected) H 03/22/18 21:45 U Benzodiazepines Scrn Detected (NotDetected) H 03/22/18 21:45 Urine Cocaine Screen Not Detected (NotDetected) 03/22/18 21:45 U Marijuana (THC) Screen Not Detected (NotDetected) 03/22/18 21:45 Assessment and Plan (1) Acute delirium Current Visit: Yes Status: Acute Code(s): R41.0 - DISORIENTATION, UNSPECIFIED SNOMED Code(s): 6701525 (2) Leukocytosis Narrative/Plan: 27-year-old female presents to Hospital from the [facility] with altered mental status. The patient has not had fever but there was a leukocytosis that was noted. The patient's drug screen was positive for methamphetamines and benzodiazepines which the patient is unclear of how this could be in her system. Does relate to a known history of heroin and cocaine use injection in the past. She's having no hallucinations but has an altered mental status with some confusion. Computed tomography scan without acute abnormalities MRI was somewhat limited because of motion but no acute lesions were seen. The patient's urinalysis was minimally abnormal she is denying any distinct urinary symptoms but is somewhat a poor historian at this time. Follow up urinalysis is requested to ensure that there is no distinct difficulty with the urinary system. Leukocytosis without fever appears to be reactive to her current situation includes her delirium from her polysubstance abuse and likely withdrawal from most recently with methamphetamine and benzodiazepines. Being closely monitored by neurology at this time. The patient does not require antibiotic therapy at this time. Current Visit: Yes Status: Acute Code(s): D72.829 - ELEVATED WHITE BLOOD CELL COUNT, UNSPECIFIED SNOMED Code(s): 036498512
[2018-03-25] MEDS: SODIUM CHLORIDE 0.9% 1,000 ML IV SCH ×6 (02:16→21:15)
[2018-03-25 02:23] LABS: Appearance,Urine Clear (Clear); Bilirubin,Urine Negative (Negative); Blood,Urine Negative (Negative); Color,Urine Yellow; Glucose,Urine (UA) Negative (Negative); Ketones,Urine Negative (Negative); Leukocyte Esterase,Urine Negative (Negative); Nitrite,Urine Negative (Negative); PH, Urine 5.5 (5.0-8.0); Protein,Urine Trace (Negative); Specific Gravity,Urine 1.029 (1.001-1.035); Urobilinogen,Urine <2.0 mg/dL (<2.0)
[2018-03-25] MEDS ORDERED: HALOPERIDOL LACTATE 5 MG/ML 1 ML VIAL IM PRN ×3 (13:29→18:13)
--- NOTE | 2018-03-25 15:36 | P.DS ---
Providers Date of admission: 03/24/18 13:55 Expected date of discharge: 03/25/18 Attending physician: Khang Agrawal MD Consults: 03/22/18 23:51 Consult Physician Urgent Consulting Provider: Rome Christianson Consult Reason/Comments: acute delirium Do you want consulting provider notified?: Yes Consult Physician Urgent Consulting Provider: Ricki Groves Consult Reason/Comments: acute delirium Do you want consulting provider notified?: Yes 03/24/18 07:24 Consult Physician Urgent Consulting Provider: Kit Cotto Consult Reason/Comments: Leukocytosis of unknown origin Do you want consulting provider notified?: Yes Primary care physician: Stated None Hospital Course: The patient is a 27 yo F with PMH of polysubstance abuse [facility] (for addiction to heroin, crack cocaine, benzodiazepines, klonopin, and Xanax) for confusion. The patient's CT head was unremarkable. She was admitted for further evaluation by Neurology and Psychiatry for acute encephalopathy possibly secondary to withdrawals from multiple substances. The patient was evaluated by Neurology and underwent Brain MRI and EEG which were unremarkable. She was noted to have leukocytosis and was evaluated by infectious disease who noted that it was likely secondary to stressors from delirium from polysubstance abuse and withdrawal from benzodiazepines and methamphetamines. The patient was subsequently evaluated by psychiatry and was deemed a candidate for psychiatric inpatient evaluation. Physical Examination General: Awake, alert, in no acute distress HEENT: NC/AT, anicteric sclerae, moist conjunctiva, no lid-lag, PERRLA, oropharynx clear, no erythema, exudates Cardiovascular: S1/S2 wnl, no murmurs, rubs, or gallops Lungs: Clear to auscultation, normal respiratory effort, no accessory muscle use Abdominal: Soft, nontender, non-distended, no guarding, rebound, or rigidity, normoactive bowel sounds Skin: Warm, dry Extremities: No edema or contractures Psychiatric: Alert and oriented to person, and place only, flat affect Neuro: CN II-XI grossly intact, sensation to light touch grossly present throughout, no focal sensory deficits Discharge diagnosis: Acute psychosis likely secondary to withdrawal from multiple substances, Leukocytosis A total of 60 minutes of time were spent preparing this complex discharge summary. Patient Condition at Discharge: Fair Plan - Discharge Summary New Discharge Prescriptions: New Acetaminophen Tab [Tylenol] 650 mg PO Q6HR PRN tab PRN Reason: Mild Pain Or Fever > 100.5 Ibuprofen [Motrin] 400 mg PO Q6HR PRN tab PRN Reason: Mild Pain Or Fever > 100.5 Nicotine Polacrilex [Nicorette] 2 mg BUCCAL Q6HR PRN gum PRN Reason: Nicotine Cravings Discharge Medication List Acetaminophen Tab [Tylenol] 650 mg PO Q6HR PRN tab 03/25/18 [Rx] Ibuprofen [Motrin] 400 mg PO Q6HR PRN tab 03/25/18 [Rx] Nicotine Polacrilex [Nicorette] 2 mg BUCCAL Q6HR PRN gum 03/25/18 [Rx] Follow up Appointment(s)/Referral(s): None,Stated [Primary Care Provider] - 1-2 days Activity/Diet/Wound Care/Special Instructions: Regular diet Discharge Disposition: TRANSFER TO PSYCH HOSP/UNIT
[2018-03-25] MEDS ORDERED: chlorproMAZINE 50 MG in SODIUM CHLORIDE 0.9% 50 ML IV SCH (16:30)
--- NOTE | 2018-03-25 17:57 | P.CN ---
Psychiatric Consult - . Consult date: 03/25/18 Consult:: 03/25/18 14:14 Altered mental status examination Assessment and Plan Assessment: - Chief Complaint Altered mental status - History of Present Illness 27-year-old female presents to the emergency center from [facility] with altered mental status. The patient apparently has been a resident there for relatively short period of time when she started to have worsening mental status. She counseling was sent to the emergency center with evidence of altered mental status she was admitted to hospital for neurological evaluation. Computed tomography scan was performed without acute abnormalities. She's been seen by neurology with evidence of underlying encephalopathy. Her drug screen admission was positive for methamphetamine as well as benzodiazepines. The patient denies using any drugs at all. She has no idea how she has drugs in her system. She does relate to a known history of injection drug use but it's been many months since she utilized heroin and cocaine. The patient relates that she is a 10-year-old son who is under the care of his father in the [place] area, which is important because of her difficulties with drug use and staying at the [facility]. The patient relates a board and is able to state that she is in [facility] in the [facility]. However 1 first asked where she is at she says [facility]. She relates that she saw Dr. Groves and Dr. Pal bañuelos last year. She had difficulty with any mental calculations but denied hallucinations. She distinctly denies any discomforts, she has no headache, no eye pain, no shortness of breath cough or sputum production no abdominal pain no nausea emesis change in bowel habits. She doesn't believe she has dysuria or flank pain. Past Medical History Additional Past Medical History / Comment(s): heroin abuse History of Any Multi-Drug Resistant Organisms: None Reported Past Surgical History: Orthopedic Surgery Additional Past Surgical History / Comment(s): Right hip surgery- patient says they repaired tissue because of needle use Past Psychological History: No Psychological Hx Reported Additional Psychological History / Comment(s): She is single. The father of her 10-year-old apparently is in custody of the child. Has a history of tobacco use, denies much alcohol use, has a history of polysubstance abuse and has done heroin and cocaine by injection last time apparently a few months ago. It is noted methamphetamine and benzodiazepine in her system at admission. No experience. No international travel. No animal exposures Smoking Status: Current some day smoker Past Alcohol Use History: None Reported Past Drug Use History: None Reported Mental status exam the patient: This is a 27-year-old single female who was oriented to person place and time but clearly became delusional psychotic during the conversation. She earlier try to escape to go to rule out because she wanted her spirit to be free and fly off the building. She was at [facility] for substance abuse treatment which she's done numerous times before. She has never had psychiatric treatment although substance use disorder severe is a psychiatric disorder. She has a 10-year-old son which she has not seen and was attempting to write on the wall a letter to her and when the staff interrupted her she lunged at the staff. She was found in restraints after her agitation and inability to cope. She denies suicidal or homicidal ideation. She is clearly delusional responding to internal stimuli and quite psychotic. I waited to see her until she was medically clear due to her obvious leukocytosis. One of the interesting aspects of this patient as leukocytosis was found to be a genetic marker for substance use disorder which I had patented in 1991. This is an abnormality his CD4 and dysregulation of the white blood cells. I do believe that she needs to be in the psychiatric unit and agreed to take her with stabilization of Thorazine IV drip to control her agitation and delusions. Medications and Allergies Home Medications and Allergies Comment(s) Assessment and Plan (1) Acute psychosis Current Visit: Yes Status: Acute SNOMED Code(s): 84572340 (2) Leukocytosis Current Visit: Yes Status: Acute SNOMED Code(s): 962917341 (3) Methamphetamine abuse Current Visit: Yes Status: Acute SNOMED Code(s): 603576864 (4) Benzodiazepine abuse Current Visit: Yes Status: Acute SNOMED Code(s): 875261534 (5) History of crack cocaine use Current Visit: Yes Status: Acute SNOMED Code(s): 095209409 Psychiatric diagnoses at the current time acute psychosis with confusion and agitation. An application for involuntary admission to the psychiatric hospital and first clinical certification for involuntary hospitalization to inpatient psychiatric unit was being performed on the floor. After transfer we will do the second clinical certification for involuntary hospitalization. Thank you so much for the consult next Rome Christianson DO PhD (1) Benzodiazepine abuse Current Visit: Yes Status: Acute Priority: Low Code(s): F13.10 - SEDATIVE , HYPNOTIC OR ANXIOLYTIC ABUSE, UNCOMPLICATED SNOMED Code(s): 070330293 (2) History of crack cocaine use Current Visit: Yes Status: Acute Priority: Low Code(s): PEB4535 - SNOMED Code(s): 647853870 (3) History of heroin abuse Current Visit: Yes Status: Acute Priority: Low Code(s): Z87.898 - PERSONAL HISTORY OF OTHER SPECIFIED CONDITIONS SNOMED Code(s): 510268055 (4) Methamphetamine abuse Current Visit: Yes Status: Acute Priority: Low Code(s): F15.10 - OTHER STIMULANT ABUSE, UNCOMPLICATED SNOMED Code(s): 113779842
[2018-03-25 18:30] LABS: HIV 1 AB Non-Reactive (Non-Reactive); HIV AB P24 Non-Reactive (Non-Reactive); HIV P24 AG Non-Reactive (Non-Reactive)
[2018-03-25 21:25] VITALS: RESP 15
[2018-03-26 05:17] VITALS: BP 108/70; PULSE 88; TEMP 98.8
[2018-03-26] MEDS: SODIUM CHLORIDE 0.9% 1,000 ML IV SCH ×2 (05:50→07:10)
--- NOTE | 2018-03-26 19:17 | P.PN ---
Subjective Progress Note Date: 03/26/18 Patient was seen and examined at the bedside, eating breakfast. The patient was seated upright in the bed w/ flat affect. She denied any active complaints including headache, dizziness, confusion, fever, chills, nausea, vomiting, diarrhea, or abdominal pain. Objective - Vital Signs Vital signs: Vital Signs Temp 98.8 F 03/26/18 05:00 Pulse 88 03/26/18 15:21 Resp 15 03/26/18 15:21 BP 108/70 03/26/18 05:00 Pulse Ox 98 03/26/18 05:00 Intake & Output 03/26/18 03/26/18 03/27/18 06:59 18:59 06:59 Intake Total 1000 120 Balance 1000 120 Intake: Oral 1000 120 Other: Voiding Method Toilet Toilet # Voids 2 2 - Exam General: Non-toxic, in no acute distress HEENT: NC/AT, anicteric sclerae, moist conjunctiva, no lid-lag, PERRLA, oropharynx clear, no erythema, exudates Cardiovascular: S1/S2 wnl, no murmurs, rubs, or gallops Lungs: Clear to auscultation, normal respiratory effort, no accessory muscle use Abdominal: Soft, nontender, non-distended, no guarding, rebound, or rigidity, normoactive bowel sounds Skin: Warm, dry Extremities: Areas of hyperpigmentation and healed ulcers diffusely, predominantly in the UEs Psychiatric: Alert and oriented to person, place, and time, flat affect, Intact judgment Neuro: CN II-XII grossly intact, no focal motor deficits - Labs CBC & Chem 7: 03/24/18 07:48 03/24/18 07:48 Assessment and Plan Plan: Acute encephalopathy, improving, possibly secondary to substance withdrawal (ie Methamphetamine) - Patient w/ unpredictable behavior - Neurology recs appreciated - Patient to be transferred to inpatient psych Leukocytosis - Improved, no other signs of infection - Infectious disease consulted - Procalcitonin levels negative DVT//GI prophy. - Ambulatory, low risk - No indication for GI prophy.
[2018-03-27] MEDS: SODIUM CHLORIDE 0.9% 1,000 ML IV SCH ×6 (00:58→16:24)
--- NOTE | 2018-03-27 09:33 | P.PN ---
Subjective Progress Note Date: 03/27/18 Patient was seen and examined at the bedside, was laying in bed comfortably. She denied any active complaints including headache, dizziness, confusion, fever , chills, nausea, vomiting, diarrhea, or abdominal pain. Objective - Vital Signs Vital signs: Vital Signs Temp 98.8 F 03/26/18 05:00 Pulse 88 03/26/18 15:21 Resp 15 03/26/18 15:21 BP 108/70 03/26/18 05:00 Pulse Ox 98 03/26/18 05:00 Intake & Output 03/26/18 03/27/18 03/27/18 18:59 06:59 18:59 Intake Total 120 540 Balance 120 540 Intake: Oral 120 540 Other: Voiding Method Toilet # Voids 2 2 - Exam General: Non-toxic, in no acute distress HEENT: NC/AT, anicteric sclerae, moist conjunctiva, no lid-lag, PERRLA, oropharynx clear, no erythema, exudates Cardiovascular: S1/S2 wnl, no murmurs, rubs, or gallops Lungs: Clear to auscultation, normal respiratory effort, no accessory muscle use Abdominal: Soft, nontender, non-distended, no guarding, rebound, or rigidity, normoactive bowel sounds Skin: Warm, dry Extremities: Areas of hyperpigmentation and healed ulcers diffusely, predominantly in the UEs Psychiatric: Alert and oriented to person, place, and time, flat affect, Intact judgment Neuro: CN II-XII grossly intact, no focal motor deficits - Labs CBC & Chem 7: 03/24/18 07:48 03/24/18 07:48 Assessment and Plan Plan: Acute encephalopathy, improving, possibly secondary to substance withdrawal (ie Methamphetamine) - Patient w/ unpredictable and dangerous behavior - Neurology and Psych recs appreciated - Patient to be transferred to inpatient psych Leukocytosis - Improved, no other signs of infection - Infectious disease consulted - Procalcitonin levels negative DVT//GI prophy. - Ambulatory, low risk - No indication for GI prophy.
== END 2018-03-27 19:44 ==
LOC: EC 19:58 → 3OBS 23:01 → 5MS5E 03-23 19:45 → OBSVTOIN 03-24 13:55 → INTOOBSV 03-24 13:55 → UNDODISIN 03-27 19:44
PROVIDERS: ADMIT Family Medicine; ATTEND Family Medicine
DX: F23 Brief psychotic disorder (principal); F15.10 Other stimulant abuse, uncomplicated; F13.20 Sedative, hypnotic or anxiolytic dependence, uncomplicated; D72.829 Elevated white blood cell count, unspecified; G93.40 Encephalopathy, unspecified; F11.20 Opioid dependence, uncomplicated; F14.20 Cocaine dependence, uncomplicated; F17.200 Nicotine dependence, unspecified, uncomplicated; I45.81 Long QT syndrome; R00.1 Bradycardia, unspecified; Z78.1 Physical restraint status
CPT/HCPCS: 96372; 99285; 36415; 95816; 93005; 93306; 84439; 80053 ×3; 84443; 84484; 85025 ×2; 85027; 85610; 85730; 81003; 81001; 81025; 80306; 87390; 84145; 71046; 70450; 70551; G0378 ×7; S4990; J1630